=== PATIENT | female | born 1995 | race Caucasian/White ===

== ENCOUNTER 2017-10-11 20:30 | Inpatient (IN) | payer OTHER ==
[2017-10-11 21:01] VITALS: BMI 43.1
[2017-10-11] MEDS ORDERED: Lactated Ringer's 1,000 ML IV ONE (21:01)
[2017-10-11] MEDS: Lactated Ringer's 1,000 ML IV SCH (22:00)
[2017-10-11 22:32] LABS: BASO % 0.1 % (0.0-2.0); EOS # 0.1 K/uL (0.0-0.7); EOS % 0.9 % (0.0-4.0); HEMOGLOBIN 12.4 g/dL (12.0-16.0); LYMPH # 2.2 K/uL (1.0-4.3); LYMPH % 18.5 % (20.0-40.0); MEAN CELL VOLUME 92.9 fl (81.0-99.0); MEAN CORPUSCULAR HEMOGLOBIN 31.4 pg (27.0-31.0); MEAN CORPUSCULAR HGB CONC 33.8 g/dL (33.0-37.0); MEAN PLATELET VOLUME 9.3 fl (7.2-11.7); MONO # 0.8 K/uL (0.0-0.8); MONO % 6.9 % (0.0-10.0); NEUT # 8.7 K/uL (1.8-7.0); NEUT % 73.6 % (50.0-75.0); RBC 3.96 Mil/uL (3.80-5.20); RED CELL DISTRIBUTION WIDTH 13.2 % (11.5-14.5); WHITE BLOOD COUNT 11.8 K/uL (4.8-10.8)
--- NOTE | 2017-10-12 06:06 | OBADHP ---
Datetime: 10/11/2017 21:12 Admit Comment, IP Provider: Pt is a 41 wk GABRIELA 10/04/17 based on LMP 12/20/16 and 12wk U/s done 03/24/17. Here for scheduled induction of labor. Patient states she denies contractions, vaginal bleed ing, or LOF. Reports good movements. Her primary doctor is Dr. Hemphill. Denies dizzi ness, headaches, blurry vision,CP, SOB, NVDC, or burning with urination. OBhx: Denies complications with current besides slight anemia no tx req 2 SAB- 2 DNC(2010 _2013) Library Circulation Assistant hx: last sexually active less than a week ago, chlamydia 2013 treated, no abnormal paps PNL: all unremarkable denies receiving TDAP or PPD, ABO:O+ PMHx: None Meds: Prenatals Allergies: NKDA Family Hx: Mom- HTN, Grandma-DM Social Hx: Denies smoking, alcohol, or drug use Surg Hx: R benign breast mass removed-2010 A/P 41 Wk IUP here for a scheduled induction -Monitor heart tracings - Admit L _ D - IVF's, administer cytotec - Check for cervical change Eusebia Hendricks M.D. PGY-1 Patient seen and case discussed with Dr. Carrion Addendum by Dr. Carrion Extremities - PN: Normal Abdomen - PN: Normal Lungs - PN: Normal Heart - PN: Normal Neurologic - PN: Normal HEENT - PN: Normal General - PN: Normal Comments, ACOG Physical Exam: 1+ B/L Non pitting edema IP Hx Assessment: The History has been Reviewed and is Current Vital Signs Provider: Reviewed; Within Normal Limits IP Chief Complaint: Scheduled induction of labor IP Adm Impression: Term, intrauterine IP Admit Plan: Initiate labor induction protocol
--- NOTE | 2017-10-12 18:21 | OBPN ---
Datetime: 10/12/2017 15:30 IP Progress Impression: Reassuring heart rate IP Progress Plan: Continue present management; Induction; Cervical Ripening; Anticipate Vaginal Deli very Pool Provider: Negative Membranes, Provider: Intact Presentation-Admit: Vertex IP Progress Note Comment: OB Hospitalist on-call Earlier today, she was seen on rounds. She was admitted ofr postdate preg. She was started on C ytotec po. Sh eate bfast and lunch. She feel occ CTX A: IUP at 41w Postdate preg PLAN: Explained IOL, medicatoins, pain management, labor, delivery and . Continue IOL w ith Cytotec. FHR Category Provider Fetus A: Category I NICHD Decel Fetus A IP Provider: None Datetime: 10/11/2017 21:12 IP Informed Consent Obtain: Vaginal Delivery Gestation - Est Wks by US: 41.0 Vital Signs Provider: Reviewed; Within Normal Limits
[2017-10-13] MEDS: Lactated Ringer's 1,000 ML IV SCH ×3 (02:30→18:30)
--- NOTE | 2017-10-13 07:06 | OBPN ---
Datetime: 10/13/2017 02:00 IP Progress Impression Other: Latent pahse of labor IP Progress Impression: Reassuring heart rate IP Informed Consent Obtain: Vaginal Delivery IP Progress Plan: Augmentation; Anticipate Vaginal Delivery Pool Provider: Negative Membranes, Provider: Intact Contraction Comments Provider: occ Presentation-Admit: Vertex IP Progress Note Comment: She rec'd Cyttoec 6 doses. She feels CTX pain. SVE 2cm LATENT PHASE PLAN: Disucssion about Pitocin augmentation. She agreed. FHR Category Provider Fetus A: Category I Dilatation, Provider: Jessica RUANO Decel Fetus A IP Provider: None
[2017-10-13] MEDS ORDERED: FENTANYL EPI ONE (22:42)
[2017-10-13] MEDS ORDERED: BUPIVACAINE HCL EPI ONE (22:42)
--- NOTE | 2017-10-14 07:52 | OBPN ---
Datetime: 10/14/2017 07:49 IP Progress Impression: Normal progression of labor; Reactive non-stress test IP Informed Consent Obtain: Vaginal Delivery IP Progress Plan: Continue present management FHR - Baseline A Provider: 145 IP Progress Note Comment: Patient doing well reports good movement no leakage of fluid no vagi nal bleeding Sterile vaginal exam 3 cm 75% -2 Induction of labor secondary to postdates Vertex presentation Adequate pelvis Estimated weight 8 pounds Anticipate vaginal delivery NICHD Accel Fetus A IP Provider: [id number] FHR Category Provider Fetus A: Category I NICHD Variability Prov Fetus A: Moderate 6-25bpm Dilatation, Provider: 3 Effacement, Provider: 75 Station, Provider: -2 NICHD Decel Fetus A IP Provider: None
--- NOTE | 2017-10-14 07:57 | OBPN ---
Datetime: 10/14/2017 07:54 IP Progress Impression: Normal progression of labor IP Informed Consent Obtain: Vaginal Delivery IP Progress Plan: Continue present management FHR - Baseline A Provider: 145 Gestation - Est Wks by US: 41.0 IP Progress Note Comment: Patient doing well pain well-controlled Sterile vaginal exam 5-6 cm dilated 90% -2 Continue augmentation Anticipate vaginal delivery NICHD Accel Fetus A IP Provider: 15X15 FHR Category Provider Fetus A: Category I NICHD Variability Prov Fetus A: Moderate 6-25bpm Dilatation, Provider: 6 Effacement, Provider: 90 Station, Provider: -2 NICHD Decel Fetus A IP Provider: None
--- NOTE | 2017-10-14 09:37 | OBPN ---
Datetime: 10/14/2017 09:33 IP Progress Impression Other: Category I FHT IP Procedures: Sterile Vag Exam IP Progress Plan: Continue present management; Augmentation Contraction Comments Provider: q3min FHR - Baseline A Provider: 150s IP Progress Note Comment: Category I FHT. Continue current management. Discussed plan with patient and all patient questions answered. Vital Signs Provider: Reviewed; Within Normal Limits NICHD Accel Fetus A IP Provider: 15X15 FHR Category Provider Fetus A: Category I NICHD Variability Prov Fetus A: Moderate 6-25bpm Dilatation, Provider: 5-6 Effacement, Provider: 90 Station, Provider: -2 NICHD Decel Fetus A IP Provider: None
[2017-10-14] MEDS: Lactated Ringer's 1,000 ML IV SCH ×3 (09:58→17:21)
--- NOTE | 2017-10-14 13:58 | OBPN ---
Datetime: 10/14/2017 13:52 IP Progress Impression Other: Category I FHT IP Procedures: Sterile Vag Exam IP Progress Plan: Continue present management; Augmentation FHR - Baseline A Provider: 150s IP Progress Note Comment: Category I FHT. Continue current management. Discussed plan with patient and all patient questions answered. Vital Signs Provider: Reviewed; Within Normal Limits NICHD Accel Fetus A IP Provider: 15X15 FHR Category Provider Fetus A: Category I NICHD Variability Prov Fetus A: Moderate 6-25bpm Dilatation, Provider: 7 Effacement, Provider: 90 Station, Provider: -2 NICHD Decel Fetus A IP Provider: None
[2017-10-14] MEDS ORDERED: Oxytocin 30 units/LR 500ML 30 U/500 ML BAG IV ONE (16:32)
[2017-10-14] MEDS ORDERED: ceFAZolin IV 2 gm in Dextrose 2 GM/50 ML BAG IVPB SCH (16:45)
[2017-10-14] MEDS ORDERED: Morphine 1 mg/ml preservative-free Inj(Duramorph) ONE (17:07)
[2017-10-14] MEDS ORDERED: DiphenhydrAMINE 50 mg/ml Inj IVP PRN ×2 (18:27→21:59)
[2017-10-14] MEDS ORDERED: Naloxone 0.4 mg/ml Inj (Adult) IVP PRN ×2 (18:27→21:59)
[2017-10-14] MEDS ORDERED: OXYTOCIN/0.9 % NS 20 UNIT/1,000 ML BAG IV SCH (21:59)
[2017-10-14] MEDS ORDERED: Lactated Ringer's 1,000 ML IV SCH (21:59)
[2017-10-15 06:05] LABS: HEMOGLOBIN 10.7 g/dL (12.0-16.0); MEAN CELL VOLUME 92.8 fl (81.0-99.0); MEAN CORPUSCULAR HEMOGLOBIN 31.2 pg (27.0-31.0); MEAN CORPUSCULAR HGB CONC 33.6 g/dL (33.0-37.0); RBC 3.42 Mil/uL (3.80-5.20); RED CELL DISTRIBUTION WIDTH 12.8 % (11.5-14.5); WHITE BLOOD COUNT 18.1 K/uL (4.8-10.8)
[2017-10-15] MEDS ORDERED: Multivitamin With Minerals Tab PO SCH (09:00)
--- NOTE | 2017-10-15 10:03 | OBPPN ---
Datetime: 10/15/2017 10:01 PP Pain Prov: Within normal limits PP Nausea Prov: Denies PP Flatus Prov: Yes PP Breasts Prov: Not Done PP Heart Prov: Normal PP Lungs Prov: Normal PP Abdomen/Uterus Prov: Normal PP Lochia Prov: Not Done PP Vulva/Perineum Prov: Not Done PP CVA Tenderness Prov: Normal PP Extremities Prov: Normal PP Impression Prov: Normal progression PP Plan Prov: Continue present management PP Progress Note Prov: Patient doing well without complaints pain well-controlled reports minimal lo thiago Vital signs stable afebrile Uterus firm below the umbilicus Incision clean dry and intact day 1 Ambulate, regular diet, analgesia Vital Signs Provider PP: Reviewed
[2017-10-15] MEDS: Multivitamin With Minerals Tab PO SCH (16:17)
[2017-10-16] MEDS: Multivitamin With Minerals Tab PO SCH (08:30)
--- NOTE | 2017-10-16 23:01 | OBDS ---
DELIVERY PERSONNEL Delivery Doctor: Glenn Garvey MD Digital Sales Executive: Rylee Eldridge RN Anesthesiologist: Ramona Rosario MD Resident: Dr Tristen Morgan MATERNAL INFORMATION Delivery Anesthesia: Epidural Medications in Delivery: pitocin Estimated Blood Loss (ml): 800 Placenta Cultured: No Maternal Complications: Other Other Maternal Complications: ARREST OF LABOR Provider Comments: Primary low flap transverse section via Pfannenstiel incision. Patient d elivered viable infant with Apgars of 5 and 9 at one and 5 minutes respectively. Placenta delivered m anually. Estimated blood loss 800 mL Fluids 1400 mL lactated Ringer's Urine output 600 mL of clear urine No complications. Patient tolerated delivery well. LABOR SUMMARY EDC: 10/04/2017 00:00 No. Babies in Womb: 1 Attempted: No Labor Anesthesia: Epidural LABOR INFORMATION Reason for Induction: Postterm Onset of Labor: 10/14/2017 06:00 (Annotations: Data stored by [facility] on behalf of user) Cervical Ripening Agents: Cytotec @ (Annotations: Cytotec 50mcg given 6th final dose ) Oxytocin: Augmentation Group B Beta Strep: Negative Antibiotics # of Doses: 1 Steroids Given: None Reason Steroids Not Administered: Not Applicable MEMBRANES Membranes Rupture Method: Artificial Rupture of Membranes: 10/13/2017 23:23 Length of Rupture (hrs): 18.07 Amniotic Fluid Color: Clear Amniotic Fluid Amount: Moderate Amniotic Fluid Odor: Normal STAGES OF LABOR Stage 3 hrs: 0 Stage 3 min: 1 Total Time in Labor hrs: 11 Total Time in Labor min: 28 VAGINAL DELIVERY Episiotomy: None Laceration Extension: N/A Laceration Type: None Laceration Repair: Not Applicable Sponge Count Correct: N/A Sharps Count Correct: N/A CSECTION DELIVERY Primary Indication: Secondary Arrest of Dilatation CSection Urgency: Non Elective CSection Incidence: Primary Labor: Labor Elective: Elective CSection Incision: Lower Uterine Transverse Uterine Closure: Double-layer closure BABY A INFORMATION Infant Delivery Date/Time: 10/14/2017 17:27 Method of Delivery: Born in Route : No : N/A Forceps: N/A Vacuum Extraction: N/A Shoulder Dystocia : No SHOULDER DYSTOCIA BABY A Delivery Date/Time: 10/14/2017 17:27 PRESENTATION/POSITION BABY A Presentation: Cephalic Cephalic Presentation: Vertex Breech Presentation: N/A PLACENTA INFORMATION BABY A Placenta Delivery Time : 10/14/2017 17:28 Placenta Method of Delivery: Expressed Placenta Status: Delivered SCORES BABY A Heart Rate 1 min: >100 bpm Resp Effort 1 min: Absent Reflex Irritability 1 min: Grimace Muscle Tone 1 min: Some Flexion of Extremities Color 1 min: Body [place], Extremities Blue SCORE 1 MIN: 5 Heart Rate 5 min: >100 bpm Resp Effort 5 min: Good Cry Reflex Irritability 5 min: Cough or Sneeze or Pulls Away Muscle Tone 5 min: Active Motion Color 5 min: Body [place], Extremities Blue SCORE 5 MIN: 9 INFANT INFORMATION BABY A Gestational Age at Delivery: 41.3 Gestational Status: Post-term Outcome : Liveborn Condition : Stable Sex: Male IDENTIFICATION/MEDS BABY A ID Band Number: [id number] WEIGHT/LENGTH BABY A Infant Birthweight (gms): 3430 Infant Weight (lb): 7 Weight (oz): 9 CORD INFORMATION BABY A No. Cord Vessels: 3 Nuchal Cord : N/A Nuchal Cord Other: N/A True Knot: N/A Cord Blood Taken: Yes Banking/Donate Info: N/A Infant Suction: Mouth; Nose ASSESSMENT BABY A Lead Presser/ALS Called : Yes Transferred To: NICU RESUSCITATION BABY A Resuscitation Effort: Marium Khan RN,in the OR PERFORM RESUSCIATION MEASURES ON BABY
--- NOTE | 2017-10-16 23:15 | OBDS ---
DELIVERY PERSONNEL Delivery Doctor: Glenn Garvey MD Pie Crimping Machine Operator: Rylee Eldridge RN Anesthesiologist: Ramona Rosario MD Resident: Dr Tristen Morgan MATERNAL INFORMATION Delivery Anesthesia: Epidural Medications in Delivery: pitocin Estimated Blood Loss (ml): 800 Placenta Cultured: No Maternal Complications: Other Other Maternal Complications: ARREST OF LABOR Provider Comments: Primary low flap transverse section via Pfannenstiel incision. Patient d elivered viable infant with Apgars of 5 and 9 at one and 5 minutes respectively. Placenta delivered m anually. Estimated blood loss 800 mL Fluids 1400 mL lactated Ringer's Urine output 600 mL of clear urine No complications. Patient tolerated delivery well. Provider Comments: Delivery of viable female via following failed induction using l ower uterine transverse incision. was bulb suctioned, Apgars 8/9. LABOR SUMMARY EDC: 10/04/2017 00:00 No. Babies in Womb: 1 Attempted: No Labor Anesthesia: Epidural LABOR INFORMATION Reason for Induction: Postterm Onset of Labor: 10/14/2017 06:00 (Annotations: Data stored by N on behalf of user) Cervical Ripening Agents: Cytotec @ (Annotations: Cytotec 50mcg given 6th final dose ) Cervical Ripening Agents: Cytotec @ 50mcg Cervical Ripening Agents: Cytotec @ 50mcg Cervical Ripening Agents: Cytotec @ 50 mcg Cervical Ripening Agents: Cytotec @ 50mcg Oxytocin: Augmentation Group B Beta Strep: Negative Antibiotics # of Doses: 1 Steroids Given: None Reason Steroids Not Administered: Not Applicable MEMBRANES Membranes Rupture Method: Artificial Rupture of Membranes: 10/13/2017 23:23 Length of Rupture (hrs): 18.07 Amniotic Fluid Color: Clear Amniotic Fluid Amount: Moderate Amniotic Fluid Odor: Normal STAGES OF LABOR Stage 3 hrs: 0 Stage 3 min: 1 Total Time in Labor hrs: 11 Total Time in Labor min: 28 VAGINAL DELIVERY Episiotomy: None Laceration Extension: N/A Laceration Type: None Laceration Repair: Not Applicable Sponge Count Correct: N/A Sharps Count Correct: N/A CSECTION DELIVERY Primary Indication: Secondary Arrest of Dilatation CSection Urgency: Non Elective CSection Incidence: Primary Labor: Labor Elective: Elective CSection Incision: Lower Uterine Transverse Uterine Closure: Double-layer closure BABY A INFORMATION Infant Delivery Date/Time: 10/14/2017 17:27 Method of Delivery: Born in Route : No : N/A Forceps: N/A Vacuum Extraction: N/A Shoulder Dystocia : No SHOULDER DYSTOCIA BABY A Infant Delivery Date/Time: 10/14/2017 17:27 PRESENTATION/POSITION BABY A Presentation: Cephalic Cephalic Presentation: Vertex Breech Presentation: N/A PLACENTA INFORMATION BABY A Placenta Delivery Time : 10/14/2017 17:28 Placenta Method of Delivery: Expressed Placenta Status: Delivered SCORES BABY A Heart Rate 1 min: >100 bpm Resp Effort 1 min: Absent Reflex Irritability 1 min: Grimace Muscle Tone 1 min: Some Flexion of Extremities Color 1 min: Body [place], Extremities Blue SCORE 1 MIN: 5 Heart Rate 5 min: >100 bpm Resp Effort 5 min: Good Cry Reflex Irritability 5 min: Cough or Sneeze or Pulls Away Muscle Tone 5 min: Active Motion Color 5 min: Body [place], Extremities Blue SCORE 5 MIN: 9 INFANT INFORMATION BABY A Gestational Age at Delivery: 41.3 Gestational Status: Post-term Infant Outcome : Liveborn Infant Condition : Stable Infant Sex: Male IDENTIFICATION/MEDS BABY A ID Band Number: [id number] WEIGHT/LENGTH BABY A Infant Birthweight (gms): 3430 Infant Weight (lb): 7 Infant Weight (oz): 9 CORD INFORMATION BABY A No. Cord Vessels: 3 Nuchal Cord : N/A Nuchal Cord Other: N/A True Knot: N/A Cord Blood Taken: Yes Banking/Donate Info: N/A Suction: Mouth; Nose ASSESSMENT BABY A Medical Stenographer/ALS Called : Yes Transferred To: NICU RESUSCITATION BABY A Resuscitation Effort: Marium Khan RN,in the OR PERFORM RESUSCIATION MEASURES ON BABY
--- NOTE | 2017-10-17 06:12 | OP ---
PROCEDURE DATE: 10/14/2017 PREOPERATIVE DIAGNOSIS: Arrest of dilatation and active labor. POSTOPERATIVE DIAGNOSIS: Arrest of dilatation and active labor. OPERATIVE FINDINGS: Viable with Apgars of 5 and 9 at 1 and 5 minutes respectively. Normal uterus, normal tubes and ovaries bilaterally. ESTIMATED BLOOD LOSS: 800 mL. FLUIDS: 1400 mL lactated Ringer's. URINE OUTPUT: 600 mL of clear urine at the end of procedure. COMPLICATIONS: No complications. PROCEDURE: Primary low-flap transverse section via Pfannenstiel incision. SURGEON: Jake Garvey MD ANESTHESIOLOGIST: Paramjit Rosario DO ANESTHESIA: Spinal. DESCRIPTION OF PROCEDURE: The patient was taken to the operating room where spinal anesthesia was found to be adequate. The patient was prepped and draped in a normal sterile fashion in the dorsal supine position with a leftward tilt. A Pfannenstiel skin incision was made with scalpel. This was carried down through to the underlying layer of fascia with the scalpel. Midline defect was made in the fascial layer with the scalpel. The fascial incision was then extended bilaterally sharply with curved Mcintosh scissors. The fascial layer was from the underlying rectus muscles both bluntly and sharply with curved Mcintosh scissors. The rectus muscles were at the midline. The peritoneum was then identified, tented upward with Sujata clamps x2, and entered sharply with Metzenbaum scissors. This peritoneal incision was then extended superiorly and inferiorly with good visualization of the urinary bladder. Bladder blade was inserted into the abdomen. The vesicouterine peritoneum was then identified, tented up with Sujata clamps x2, and entered sharply with Metzenbaum scissors. This peritoneal incision was then extended bilaterally with Metzenbaum scissors. The bladder flap was created digitally. The Jonn retractor was placed over the urinary bladder. The uterus was incised with a scalpel. The uterine incision was extended bilaterally bluntly. The infant's head was delivered atraumatically. Nose and mouth were suctioned with bulb suction. The remainder of the was delivered without complication. The cord was clamped and cut. The was handed off to awaiting pediatricians. Cord gases were collected. Cord blood was collected. The placenta was removed manually. The uterus was cleared of all clots and debris. The uterine incision was repaired with 0 Vicryl in a running, locked fashion. The second layer with the same suture was used to imbricate the first and to obtain excellent hemostasis. Re-inspection of the uterine incision proved excellent hemostasis. The abdomen and pelvis were irrigated with copious amounts of warm normal saline. Re-inspection of the uterine incision proved excellent hemostasis. All instruments were removed from the patient. The peritoneal layer was closed with a running stitch of 2-0 chromic. The rectus muscles were reapproximated with a running stitch of 2-0 chromic. The fascial layer was closed with a running stitch of 0 Vicryl. Subcutaneous tissue was closed with a running stitch of 3-0 plain. The skin was closed with a subcutaneous stitch of 3-0 Vicryl. The patient tolerated the procedure well. All sponge count, lap count, and needle counts were correct x2. The patient was given 2 g of Ancef just prior to the beginning of the procedure. The patient was taken to the recovery room in awake and stable condition. Jake Garvey MD
[2017-10-17] MEDS: Multivitamin With Minerals Tab PO SCH (08:44)
--- NOTE | 2017-10-17 10:32 | OBDCSUM ---
Datetime: 10/17/2017 08:36 Discharged to, Provider: Home Follow up at, Provider: jose l Disch Instr Activity: May Shower Disch Instr Diet: Regular Discharge Instructions, Provider: Routine instructions given Discharge Diagnosis, Provider: Term Delivered Discharge Time: 10/17/2017 12:00 Follow up in weeks, Provider: 1 week Disch Referrals: None Contraception discussed, Prov: Yes Disch Activity Restrictions: No lifting; No sexual activity; Nothing in vagina - [place], tampon smirza
--- NOTE | 2017-10-17 10:32 | OBPPN ---
Datetime: 10/17/2017 10:28 PP Pain Prov: Within normal limits PP Nausea Prov: Denies PP Flatus Prov: Yes PP Breasts Prov: Normal PP Heart Prov: Normal PP Lungs Prov: Normal PP Abdomen/Uterus Prov: Normal PP Lochia Prov: Normal PP Vulva/Perineum Prov: Normal PP CVA Tenderness Prov: Normal PP Extremities Prov: Normal PP Progress Note Prov: Patient denies CP, no SOB, no N/V, tolerating PO diet, ambulating/voiding wel l, mild lochia, abdominal pain tolerable with meds A/P POD #3 1. Discharge home 2. Discharge instructions reviewed Vital Signs Provider PP: Reviewed; Within Normal Limits
[2017-10-18 03:18] VITALS: BP 135/66; PULSE 72; RESP 18; TEMP 98.2; O2SAT 98
== END 2017-10-17 12:40 | disposition home or self-care (01) | DRG 371 ==
LOC: H.L&D 21:01 → H.OB/GYN 10-14 22:04
PROVIDERS: ADMIT Obstetrics & Gynecology; ATTEND Obstetrics & Gynecology
PROC: 4A1HXCZ Monitoring of Products of Conception, Cardiac Rate, External Approach (ICD-10-PCS; 2017-10-11)
PROC: 10D00Z1 Extraction of Products of Conception, Low, Open Approach (ICD-10-PCS; principal; 2017-10-14)
DX: O48.0 Post-term pregnancy (principal); Z37.0 Single live birth; O62.1 Secondary uterine inertia; Z3A.41 41 weeks gestation of pregnancy; O62.0 Primary inadequate contractions